=== PATIENT | female | born 1995 | race African-American/Black ===

== ENCOUNTER 2017-10-31 15:57 | Emergency (ER) | payer MEDICAID ==
[~2017-10-31] VITALS: Ht 152.4 cm; Wt 78.0 kg
[2017-10-31 16:01] VITALS: BP 123/76
== END 2017-10-31 22:00 | disposition left against medical advice (07) ==
LOC: ER 15:57
DX: Z53.21 Procedure and treatment not carried out due to patient leaving prior to being seen by health care provider (principal)

== ENCOUNTER 2018-09-26 23:01 | Emergency (ER) | payer MEDICAID ==
[~2018-09-26] VITALS: Ht 149.9 cm; Wt 80.0 kg
[2018-09-27 03:03] LABS: BASOPHILS % 0.5 % (0.0-2.0); EOSINOPHILS % 1.2 % (0.0-5.0); HEMATOCRIT. 31.8 % (36.0-48.0); HEMOGLOBIN. 9.7 g/dL (12.0-16.0); LYMPHOCYTES % 27.6 % (20.0-50.0); MEAN CORPUSCULAR HEMOGLOBIN 21.6 pg (28.0-32.0); MEAN CORPUSCULAR VOLUME 70.9 fL (81.0-99.0); MEAN PLATELET VOLUME 6.8 fl (7.4-10.4); MONOCYTES % 11.3 % (2.0-8.0); NEUTROPHILS % 59.4 % (40.0-76.0); PLATELET 335 x1000/uL (130-400); RED BLOOD CELL COUNT 4.48 mill/uL (4.2-5.4); RED CELL DISTRIBUTION WIDTH 20.7 % (11.6-14.6)
[2018-09-27 03:09] LABS: CHLORIDE 106 mEq/L (98-107)
[2018-09-27 03:10] LABS: CLARITY URINE CLOUDY (CLEAR); COLOR URINE YELLOW (YELLOW); KETONES URINE TRACE (NEGATIVE); LEUKOCYTE ESTERASE URINE 1+ (NEGATIVE); NITRITE URINE NEGATIVE (NEGATIVE); OCCULT BLOOD URINE NEGATIVE (NEGATIVE); PH URINE 5.5 (4.5-8.0); PROTEIN URINE TRACE (NEGATIVE); SPECIFIC GRAVITY URINE 1.043 (1.005-1.030)
[2018-09-27 03:45] VITALS: BP 119/68
== END 2018-09-27 05:39 | disposition home or self-care (01) ==
LOC: ER 23:01
DX: R10.9 Unspecified abdominal pain (principal); F17.210 Nicotine dependence, cigarettes, uncomplicated
CPT/HCPCS: 36415; 81025; 87077; 99283

== ENCOUNTER 2020-05-18 11:06 | Emergency (ER) | payer SELFPAY ==
[~2020-05-18] VITALS: Ht 170.2 cm; Wt 113.0 kg
[2020-05-18] MEDS ORDERED: MORPHINE SULFATE 4 MG/ML CPJ (NOT FOR IM USE) IV STA (11:42)
[2020-05-18] MEDS ORDERED: ONDANSETRON HCL 4MG/2ML INJ IV STA (11:42)
[2020-05-18] MEDS ORDERED: SODIUM CHLORIDE 0.9% 1,000 ML IV ONE (11:45)
[2020-05-18 12:07] LABS: CLARITY URINE CLOUDY (CLEAR); KETONES URINE NEGATIVE (NEGATIVE); LEUKOCYTE ESTERASE URINE 2+ (NEGATIVE); NITRITE URINE NEGATIVE (NEGATIVE); OCCULT BLOOD URINE 3+ (NEGATIVE); PROTEIN URINE NEGATIVE (NEGATIVE); SPECIFIC GRAVITY URINE 1.011 (1.005-1.030)
[2020-05-18 12:07] LABS: CHLORIDE 111 mEq/L (98-107)
[2020-05-18 12:09] LABS: BASOPHILS % 0.4 % (0.0-2.0); EOSINOPHILS % 1.6 % (0.0-5.0); HEMATOCRIT. 35.1 % (36.0-48.0); HEMOGLOBIN. 11.2 g/dL (12.0-16.0); MEAN CORPUSCULAR HEMOGLOBIN 25.5 pg (28.0-32.0); MEAN CORPUSCULAR VOLUME 79.6 fL (81.0-99.0); MEAN PLATELET VOLUME 7.9 fl (7.4-10.4); MONOCYTES % 11.5 % (2.0-8.0); NEUTROPHILS % 51.5 % (40.0-76.0); PLATELET 298 x1000/uL (130-400); RED CELL DISTRIBUTION WIDTH 19.2 % (11.6-14.6)
[2020-05-18 12:09] LABS: COLOR URINE RED (YELLOW)
[2020-05-18 12:21] LABS: HCG SCREEN NEGATIVE
[2020-05-18 12:35] LABS: PROTHROMBIN TIME 10.3 sec (9.6-11.0)
[2020-05-18] MEDS ORDERED: CEFTRIAXONE 1 G PREMIX 50 ML IV ONE (13:15)
[2020-05-18] MEDS ORDERED: ONDA4TAB5 MT (13:51)
[2020-05-18] MEDS ORDERED: CIPR500S3 MT (13:51)
[2020-05-18] MEDS ORDERED: IMOD MT (13:51)
[2020-05-18 14:08] VITALS: BP 128/75
== END 2020-05-18 14:17 | disposition home or self-care (01) ==
LOC: ER 11:18
DX: R10.9 Unspecified abdominal pain (principal); N39.0 Urinary tract infection, site not specified; R11.10 Vomiting, unspecified; R19.7 Diarrhea, unspecified
CPT/HCPCS: 36415; 74176; 80053; 81003; 81025; 83690; 84703; 85025; 85610; 87086; 93005; 96361; 96365; 96375; 99285; J0696; J2270; J2405; J7030; Z7610

== ENCOUNTER 2020-11-06 10:46 | Emergency (ER) | payer MEDICAID ==
[~2020-11-06] VITALS: Ht 149.9 cm; Wt 107.0 kg
[~2020-11-06 10:46] MED LIST: CIPR500S3 MT; IMOD MT; ONDA4TAB5 MT
[2020-11-06 11:20] VITALS: BP 148/102
[2020-11-06] MEDS ORDERED: ACETAMINOPHEN 325MG TABLET PO ONE (13:00)
[2020-11-06 13:14] LABS: CLARITY URINE TURBID (CLEAR); COLOR URINE YELLOW (YELLOW); KETONES URINE 1+ (NEGATIVE); LEUKOCYTE ESTERASE URINE TRACE (NEGATIVE); NITRITE URINE NEGATIVE (NEGATIVE); OCCULT BLOOD URINE NEGATIVE (NEGATIVE); PH URINE 6.5 (4.5-8.0); PROTEIN URINE 2+ (NEGATIVE); SPECIFIC GRAVITY URINE 1.029 (1.005-1.030)
[2020-11-06 15:11] LABS: BASOPHILS % 0.4 % (0.0-2.0); EOSINOPHILS % 1.3 % (0.0-5.0); HEMATOCRIT. 35.7 % (36.0-48.0); HEMOGLOBIN. 11.8 g/dL (12.0-16.0); LYMPHOCYTES % 20.3 % (20.0-50.0); MEAN CORPUSCULAR HEMOGLOBIN 26.8 pg (28.0-32.0); MEAN CORPUSCULAR VOLUME 81.3 fL (81.0-99.0); MEAN PLATELET VOLUME 8.8 fl (7.4-10.4); MONOCYTES % 6.5 % (2.0-8.0); NEUTROPHILS % 71.5 % (40.0-76.0); PLATELET 312 x1000/uL (130-400)
[2020-11-06 15:18] LABS: CHLORIDE 106 mEq/L (98-107)
[2020-11-06 15:23] LABS: PARTIAL THROMBOPLASTIN TIME 25.5 sec (23.4-31.0); PROTHROMBIN TIME 10.3 sec (9.6-11.0)
[2020-11-06 15:45] LABS: B-HCG QUANTITATIVE 30539 mIU/mL (<3)
[2020-11-06] MEDS ORDERED: NITR-87 MT (15:56)
== END 2020-11-06 16:30 | disposition home or self-care (01) ==
LOC: ER 10:46
DX: O26.892 Other specified pregnancy related conditions, second trimester (principal); O23.32 Infections of other parts of urinary tract in pregnancy, second trimester; Z3A.16 16 weeks gestation of pregnancy; Z98.890 Other specified postprocedural states; Z79.899 Other long term (current) drug therapy
CPT/HCPCS: 36415; 71045; 76805; 80053; 81003; 81025; 84702; 85025; 85610; 85730; 86850; 86900; 86901; 93005; 93970; 99285; Z7610